=== PATIENT | male | born 1940 | race Caucasian/White ===

== ENCOUNTER 2020-07-10 03:20 | Inpatient (IN) | payer OTHER, SELFPAY ==
[~2020-07-10] VITALS: Ht 165.1 cm; Wt 103.0 kg
[2020-07-10 03:34] VITALS: BP 145/62
--- NOTE | 2020-07-10 03:35 | NUR ---
03:18---- PT WAS BIB [facility] [facility] TO HOSPITAL BED AND TRANSFERED FROM [facility] TO HOSPITAL BED WITHOUT INCIDENT.
--- NOTE | 2020-07-10 03:40 | NUR ---
79 Y/O MALE, BIBA W/ C/O FEVER. PT FROM [facility], PER FACILITY, NURSE REPORTS A FEVER OF 99.4, UPON ARRIVAL, ORAL TEMP 98.7. PT SP02 IN LOW 80's, STARTED ON NASAL CANNULA 3L. PT ANOx4, MAKES NEEDS KNOWN. SUPRAPUBIC CATHETER IN PLACE, HAZY YELLOW URINE NOTED. SKIN INTACT, SOME CELLULITIS NOTED AT BILATERAL LOWER EXTREMITIES. PT REPORTS HAVING CONSTANT CHRONIC BACK PAIN DUE TO 2 SCREW PLACEMENT. PT POSITIONED FOR COMFORT. SAFETY MEASURES IN PLACE. NKA MED HX: KIDNEY DX, PROSTATE CA, HTN
--- NOTE | 2020-07-10 04:02 | NUR ---
EKG PERFORMED AT BEDSIDE. EKG READS SINUS RHYTHM @ 81
--- NOTE | 2020-07-10 04:08 | NUR ---
X-Ray at bedside.
--- NOTE | 2020-07-10 04:43 | NUR ---
BLOOD CULTURES, BLOOD LABS, COVID KEELEY & NOVEL SWABS, FLU SWAB , RSV SWAB AND URINE SAMPLE WALKED TO LAB.
[2020-07-10] MEDS ORDERED: AZITHROMYCIN 500 MG in DEXTROSE 5% 250 ML IV ONE (04:50)
[2020-07-10 05:03] LABS: BASOPHILS % (AUTO) 0.6 % (0.0-2.0); EOSINOPHILS % (AUTO) 0.5 % (0.0-4.0); HEMATOCRIT 26.4 % (36-52); HEMOGLOBIN 8.8 g/dL (12.0-18.0); LYMPHOCYTES # (AUTO) 0.6 K/uL (2.0-11.5); LYMPHOCYTES % (AUTO) 8.1 % (20.5-51.1); MEAN CORPUSCULAR HEMOGLOBIN 31 pg (27-31); MEAN CORPUSCULAR HGB CONC 33 g/dL (33-37); MEAN CORPUSCULAR VOLUME 92.8 fL (80-94); MONOCYTES # (AUTO) 0.5 K/uL (0.8-1.0); MONOCYTES % (AUTO) 6.6 % (1.7-9.3); NEUTROPHILS # (AUTO) 5.8 K/uL (1.8-7.7); NEUTROPHILS % (AUTO) 84.2 % (42.2-75.2); PLATELET COUNT (AUTO) 150 K/uL (140-450); RED BLOOD CELL COUNT(AUTO) 2.85 MIL/uL (4.20-6.10); RED CELL DISTRIBUTION WIDTH 14.7 % (11.6-13.7); WHITE BLOOD COUNT (AUTO) 6.8 K/uL (4.8-10.8)
[2020-07-10 05:06] LABS: APPEARANCE,URINE HAZY (CLEAR); BILIRUBIN,URINE NEGATIVE (NEGATIVE); BLOOD, URINE 3+ (NEGATIVE); COLOR,URINE YELLOW (YELLOW); LEUKOCYTE ESTERASE ,URINE 3+ (NEGATIVE); NITRITE, URINE POSITIVE (NEGATIVE); PH,URINE 7.5 (5.0-9.0); UGLUCOSE NEGATIVE (NEGATIVE)
[2020-07-10] MEDS ORDERED: AZITHROMYCIN 500 MG INJ VIAL IV ONE (05:07)
[2020-07-10 05:12] LABS: RSV NEGATIVE (NEGATIVE)
[2020-07-10] MEDS ORDERED: KETOROLAC 30 MG/ML VIAL ONE (05:25)
--- NOTE | 2020-07-10 05:25 | NUR ---
PT SCREAMING AND COMPLAINING OF SEVERE BACK PAIN. ADMINISTERED PAIN MEDS ORDERED AND ASSISTED WITH POSITIONING. SAFETY MEASURES IN PLACE.
[2020-07-10 05:26] LABS: RBC,URINE 11-20 (MOD) /HPF (0-5); WBC,URINE 60-80 /HPF (0-5)
[2020-07-10 05:32] LABS: PROTHROMBIN TIME 10.7 secs (10.8-13.4)
[2020-07-10] MEDS ORDERED: KETOROLAC 30 MG/ML VIAL IVP ONE (06:00)
[2020-07-10 06:09] LABS: ANION GAP 21.6 (8-16); CARBON DIOXIDE 16.7 mmol/L (21-32); CHLORIDE 93 mmol/L (98-107); GLUCOSE 107 mg/dL (74-106); POTASSIUM 5.3 mmol/L (3.5-5.1); SODIUM SERUM 126 mmol/L (136-145)
[2020-07-10 06:10] LABS: ASPARTATE AMINOTRANSFERASE 28 U/L (15-37); TOTAL BILIRUBIN 0.4 mg/dL (0.0-1.0)
[2020-07-10] MEDS ORDERED: LEVOFLOXACIN 500 MG/D5W PREMIX 100 ML IV ONE (06:10)
[2020-07-10] MEDS ORDERED: DEXAMETHASONE 10 MG/ML VIAL IVP ONE (06:10)
[2020-07-10 06:13] LABS: CREATININE 5.5 mg/dL (0.6-1.3); LACTATE DEHYDROGENASE 348 U/L (85-227); UREA NITROGEN, BLOOD 91 mg/dL (7-18)
[2020-07-10 06:16] LABS: C-REACTIVE PROTEIN QUANT 21.5 mg/dL (0.0-0.9)
[2020-07-10] MEDS ORDERED: SODIUM ZIRCONIUM CYCLOSILICATE 10 GM POWD.PACK PO ONE (06:20)
--- NOTE | 2020-07-10 07:05 | NUR ---
SPOKE [facility] PATIENTS SON-SILVA, UPDATED ON PATIENTS CONDITION. ALL QUESTIONS ANSWERED. WILL ENDORSE TO [facility] NURSE TO UPDATE FAMILY WHEN A BED IS RECEIVED. CHRIS WEI [phone]
--- NOTE | 2020-07-10 07:20 | NUR ---
ENDORSED TO DAYSHIFT NURSE ELIESER, PT IN STABLE CONDITION, 3L NC, SP02 97%. PT AWARE SON IS UPDATED. SAFETY MEASURES IN PLACE, TRANSFER OF CARE AT THIS TIME.
--- NOTE | 2020-07-10 07:25 | NUR ---
RECEIVED PATIENT AWAKE, ALERT, IN NAD WITH NO C/O PAIN. RESPIRATIONS ARE REGULAR AND UNLABORED WITH FIO2 AT 3 LITERS N/C. PATIENT IS ANXIOUS SAYING REPEATEDLY, "DON'T LEAVE ME ALONE" . REASSURANCE GIVEN. CM = SR WITHOUT ECTOPY. IVAB CONTINUES
--- NOTE | 2020-07-10 07:40 | NUR ---
CALL TO GIVE REPORT, PHONE BUSY
--- NOTE | 2020-07-10 07:42 | NUR ---
REPORT CALLED TO VESNA RN
--- NOTE | 2020-07-10 07:47 | NUR ---
CALL TO PTS SON SILVA, MESSAGE LEFT
--- NOTE | 2020-07-10 07:48 | NUR ---
TO 118A VIA GURNEY, ATTACHED TO TRANSPORT MONITOR. CARE ENDORSED TO CHARLES MALAGON
--- NOTE | 2020-07-10 08:05 | NUR ---
RECEIVED THIS 79 YEAR OLD MALE PER [facility] FROM ER, AWAKE, ALERT, ORIENTEDX2, BREATHING SPONTANEOUSLY WITH O2 AT 2L/MIN VIA NC, NOT IN DISTRESS NOTED. WITH IV CANNULA G22 AT LEFT FOREARM NOTED, ON SALINE LOCK. WITH SUPRAPUBIC CATHETER F16 ATTACHED TO URINE BAG DRAINING TO A DARK YELLOW URINE NOTED. DX COVID POSITIVE, PNEUMONIA AND HYPOXIA UNDER THE CARE OF DR. YEPEZ. SAFETY MEASURES IN PLACE AND CONTINUE MONITOR.
[2020-07-10] MEDS ORDERED: ALBUTEROL HFA MDI 90 MCG/ACTUATION 8 GM INH PRN (09:25)
[2020-07-10] MEDS ORDERED: POTASSIUM CHLORIDE 10 MEQ TABER PO PRN (09:25)
[2020-07-10] MEDS ORDERED: ONDANSETRON 4 MG/2 ML VIAL IM/IVP PRN (09:25)
[2020-07-10] MEDS ORDERED: ACETAMINOPHEN 325 MG TAB PO PRN (09:25)
[2020-07-10] MEDS ORDERED: DOCUSATE SODIUM 100 MG GELCAP PO PRN (09:25)
--- NOTE | 2020-07-10 09:30 | NUR ---
MRSA NARES SWAB DONE
[2020-07-10 10:34] LABS: CHOL/HDL RATIO 6.2 (1-4.5); FREE T4 (FREE THYROXINE) 0.99 ng/dL (0.76-1.46); MAGNESIUM 1.9 mg/dL (1.8-2.4); PHOSPHORUS 7.4 mg/dL (2.5-4.9); THYROID STIMULATING HORMONE 1.86 uIU/mL (0.34-3.74)
--- NOTE | 2020-07-10 11:05 | NUR ---
MORNING CARE DONE BY EXTRACT MIXER, ASSISTED WELL. WITH DIAPER RASH NOTED ON BILATERAL GROIN, DRY NOTED. RE-POSITIONED TO LEFT SIDE LYING. KEPT COMFORTABLE TO BED. DUE MEDICATION GIVEN.
--- NOTE | 2020-07-10 11:23 | NUR ---
DC PLANNIN YRS OLD MALE PATIENT WAS ADMITTED FROM [facility] WITH A DX OF COVID PNEUMONIA, HYPOXIA, ACIDOSIS AND COAGULOPATHY. PATIENT HAS A HISTORY OF PROSTATE CANCER. CXR SHOWED BILATERAL PERIHILAR AND BASILAR OPACITIES SUGGESTING INFILTRATES AND CARDIOMEGALY. RAPID COVID TEST POSITIVE. PCR PENDING. INFLUENZA A&B NEGATIVE. URINE AND BLOOD CULTURE PENDING. ADMINISTERED COVID PROTOCOL , IVF , IV ABX AZITHROMYCIN AND ROCEPHIN , CONTINUE HOME MEDS, BREATHING TREATMENT. CONSULTED WITH PULMO AND ID. DC PLAN TO GO TO SNF PER PT'S PREFERENCE FOR QUARANTINE. CM TO FOLLOW Addendum: 07/11/20 at 1424 by Harika Moffett CM DC SHOWROOM SALES CONSULTANT: SPOKE TO PATIENT REGARDING DC TO SNF. HE HAS STATED THAT HE WAS PREVIOUSLY AT [facility] IN [place]. I REACHED OUT TO THEM THEY ARE NOT ABLE TO ACCEPT COVID POSITIVE PATIENTS. NOTIFIED PATIENT HE DOES NOT HAVE ANY OTHER PREFERENCES. Addendum: 07/11/20 at 1425 by Harika Moffett CM JAXSON RAUSCH: FAXED PATIENTS CLINICALS TO [facility], THEY ARE ABLE TO ACCEPT THIS PATIENT. PATIENT IS AGREEABLE. Addendum: 07/15/20 at 0915 by Harika Moffett CM JAXSON MARTINEZNER: PATIENT CAN GO TO ROOM 102-A UNDER DR. HERNANDEZ. Addendum: 07/15/20 at 1300 by Harika Moffett CM JAXSON RAUSCH: PEÑA AT [facility] SET UP TRANSPORTATION WITH [facility] FOR 3:30M PM. NOTIFIED CHARLES NIEVES. Addendum: 07/15/20 at 1305 by Harika Moffett CM JAXSON RAUSCH: [facility] ROOM 102-A DR. HERNANDEZ. [phone]
--- NOTE | 2020-07-10 12:30 | NUR ---
VITAL SIGNS TAKEN AND RECORDED, STABLE. FULLY AWAKE AND ALERT
--- NOTE | 2020-07-10 13:56 | NUR ---
SOCIAL WORK NOTE: Patient's Orientation Unable To Assess Information Provided By SILVA WEI - SON Comments SW WAS UNABLE TO MEET PATIENT AT BEDSIDE TO COMPLETE ASSESSMENT. SW CONTACTED PATIENT'S SON, SILVA WEI TO COMPLETE ASSESSMENT. SW REQUESTED POA DOCUMENT TO BE FAXED TO CASE MANAGEMENT [phone]. Commercial Sales Consultant, Realtionship and Phone Number SILVA WEI SON/POA [phone] Healthcare Power of Demolition Expert Yes Does Patient Have a POLST No Identifying Problems No Social Work Triggers Is A Social Work Consult Needed No Mandate Report Filed No Explanation Of Identifying Problems PATIENT IS AN 79-YEAR-OLD MALE ADMITTED FOR COVID, PNEUMONIA, AND HYPOXIA. PATIENT HAS PMHX OF PROSTATE CANCER. PATIENT WAS ADMITTED FROM [facility]. Admitted From Assisted Living/Resident Pre-Admission Level Of Functioning Status Total Care Level Of Functioning Comment PATIENT'S SON STATED THAT PATIENT REQUIRES TOTAL ASSISTANCE WITH ADLS. Prior Resources/Services Used In Last 12 Months Assisted Living Prior DME Wheelchair Dialysis Comments N/A Living Situation Asst'd Living/Board &Care Patient Had Caregiver No Home Support No Caregiver Issues Financial Issues No Known Financial Issue Referral To The Financial Counselor Needed No Factors/Needs Assist Living/B & C Plcmt Explanation And Or Other Factors Affecting/Possible DC Needs SW EXPLAINED WITH PATIENT'S SON THAT [facility] DOES NOT ACCEPT COVID POSITIVE PATIENTS. PATIENT'S SON WAS AGREEABLE TO SNF. Pt/Rep Participated In Discharge Plan Yes Patient/Family Agress With Discharge Plan Yes Discharge Plan Comments TENTATIVE DISCHARGE PLAN IS FOR PATIENT TO BE DISCHARGED TO SNF. DC Plan Status Initiated
[2020-07-10] MEDS ORDERED: NACL 0.9% 1,000 ML IV SCH (14:15)
--- NOTE | 2020-07-10 15:10 | NUR ---
SEEN AND EXAMINED BY DR. YEPEZ, NO NEW ORDER MADE
[2020-07-10] MEDS ORDERED: MELATONIN 3 MG TAB PO PRN (16:05)
[2020-07-10] MEDS: HYDROcodone/APAP 7.5/325 MG 1 TAB PO PRN (17:31)
[2020-07-10] MEDS: FUROSEMIDE 40 MG TAB PO SCH (17:31)
--- NOTE | 2020-07-10 17:36 | NUR ---
COMPLAINED OF MODERATE BACK PAIN, 7/10, FACIAL GRIMACED NOTED WHEN MOVEMENT. NORCO 1 TAB ORDERED PRN AND DUE MEDICATION GIVEN.
--- NOTE | 2020-07-10 18:10 | NUR ---
CONSENT FOR TRANSFUSION OF CONVALESCENT PLASMA SIGNED BY THE PATIENT AND DR. BEGUM. PATIENT'S SON SILVA CONTACTED AND MADE AWARE THAT THE PATIENT WILL RECEIVE CONVALESCENT ONCE AVAILABLE.
--- NOTE | 2020-07-10 19:31 | NUR ---
ENDORSED TO CRIME ANALYST IN STABLE CONDITION FOR CONTINUITY OF CARE
--- NOTE | 2020-07-10 19:32 | NUR ---
RECEIVED PT IN STABLE CONDITION FROM AM NURSE. TELE PT. ON DROPLET PRECAUTION DUE TO COVID +. PCR STILL PENDING. ON O23L/NC. O2 SAT 96%. NO SOB NOTED. HAS IVF INFUSING WELL ON THE LT FA G#22. CLEAR AND PATENT. BED ON LOWEST POSITION. SIDE RAISL UP X2. FREQ ROUNDS NEEDED. CALL LIGHT PLACED WITHIN EASY REACH. WILL CONTINUE TO MONITOR.
[2020-07-10] MEDS: OXYBUTYNIN 5 MG TAB PO SCH (20:16)
[2020-07-10] MEDS: carvediloL 6.25 MG TAB PO SCH (20:31)
--- NOTE | 2020-07-10 21:00 | NUR ---
COREG NOT GIVEN. BP LOW 95/60. WILL CONTINUE TO MONITOR.
--- NOTE | 2020-07-11 00:30 | NUR ---
CHECKED ON PT. ASLEEP. NO S/S OF ANY DISTRESS NOTED. O2 SAT 96%. WILL CONTINUE TO MONITOR.
--- NOTE | 2020-07-11 04:00 | NUR ---
MADE ROUNDS. PT AWAKE. FEELING COLD. HEATER TURN ON. VITAL SIGNS TAKEN. O2 SAT 93% 0N 023L NC. NO /CO ANY DISCOMFORT .
--- NOTE | 2020-07-11 05:30 | NUR ---
IV BEEPING. CAME TO CHECK, FLUSHED IV ACCESS WITH NS. IT STILL PATENT, IVF INFUSING WELL.
--- NOTE | 2020-07-11 07:30 | NUR ---
ENDORSED PT IN STABLE CONDITION TO AM NURSE.
--- NOTE | 2020-07-11 07:35 | NUR ---
RECEIVED PT FROM [facility], LYING ON THE BED WITH SHERIFF ON BEDSIDE, IV LINE NOTED ON THE LFA G. 22 WITH IVF NS INFUSING AT 50ML/HR, SAFETY AND FALL PRECAUTION IN PLACE, SUPRAPUBIC CATHETER INTACT, WITH URINE DRAINED IN BAG AT 490ML/HR, PT IS ON O2 3L NC, NO SIGN OF DISTRESS NOTED AND WILL CONTINUE 4 TO MONITOR PT.
[2020-07-11] MEDS ORDERED: SEVELAMER CARBONATE 800 MG TAB PO SCH (08:00)
[2020-07-11 08:01] LABS: BASOPHILS % (AUTO) 0.3 % (0.0-2.0); HEMATOCRIT 27.7 % (36-52); HEMOGLOBIN 9.1 g/dL (12.0-18.0); LYMPHOCYTES # (AUTO) 0.5 K/uL (2.0-11.5); LYMPHOCYTES % (AUTO) 6.5 % (20.5-51.1); MEAN CORPUSCULAR HEMOGLOBIN 31 pg (27-31); MEAN CORPUSCULAR HGB CONC 33 g/dL (33-37); MEAN CORPUSCULAR VOLUME 93.3 fL (80-94); MONOCYTES # (AUTO) 0.6 K/uL (0.8-1.0); MONOCYTES % (AUTO) 6.7 % (1.7-9.3); NEUTROPHILS # (AUTO) 7.2 K/uL (1.8-7.7); NEUTROPHILS % (AUTO) 86.5 % (42.2-75.2); PLATELET COUNT (AUTO) 181 K/uL (140-450); RED BLOOD CELL COUNT(AUTO) 2.97 MIL/uL (4.20-6.10); RED CELL DISTRIBUTION WIDTH 14.6 % (11.6-13.7); WHITE BLOOD COUNT (AUTO) 8.3 K/uL (4.8-10.8)
[2020-07-11 08:08] LABS: T4 (THYROXINE) 5.1 ug/dL (4.5-12.0)
--- NOTE | 2020-07-11 08:36 | NUR ---
PATIENT HAS BEEN SCREENED AND CATEGORIZED MODERATE NUTRITION RISK. PATIENT WILL BE SEEN WITHIN 3-5 DAYS OF ADMISSION. 07/12/20 07/14/[address]
[2020-07-11 08:37] LABS: ALBUMIN 2.8 g/dL (3.4-5.0); ANION GAP 26.5 (8-16); ASPARTATE AMINOTRANSFERASE 24 U/L (15-37); CARBON DIOXIDE 16.4 mmol/L (21-32); CHLORIDE 91 mmol/L (98-107); GLUCOSE 121 mg/dL (74-106); POTASSIUM 5.9 mmol/L (3.5-5.1); SODIUM SERUM 128 mmol/L (136-145); TOTAL BILIRUBIN 0.3 mg/dL (0.0-1.0)
[2020-07-11 08:39] LABS: MAGNESIUM 2.1 mg/dL (1.8-2.4)
[2020-07-11] MEDS: ASCORBIC ACID 500 MG TAB PO SCH ×2 (09:00→09:50)
[2020-07-11] MEDS ORDERED: BENAZEPRIL 10 MG TAB PO SCH (09:00)
[2020-07-11] MEDS ORDERED: amLODIPine 5 MG TAB PO SCH (09:00)
[2020-07-11] MEDS: ZINC SULF 220 MG CAP PO SCH (09:50)
[2020-07-11] MEDS: OXYBUTYNIN 5 MG TAB PO SCH ×2 (09:51→22:08)
[2020-07-11] MEDS: DULoxetine 30 MG CAPDR PO SCH (09:51)
[2020-07-11] MEDS: FUROSEMIDE 40 MG TAB PO SCH (09:52)
[2020-07-11] MEDS: SENNA 8.6 MG TAB PO SCH (09:52)
[2020-07-11] MEDS: MORPHINE TAB ER 15 MG TABER PO SCH (09:52)
[2020-07-11] MEDS: carvediloL 6.25 MG TAB PO SCH ×2 (09:53→22:07)
[2020-07-11] MEDS: AZITHROMYCIN 250 MG TAB PO SCH (09:57)
--- NOTE | 2020-07-11 09:57 | NUR ---
PT WAS GIVEN THE SCHEDULED AM MEDICATIONS NOW, TOLERATED, NO DIFFICULTY SWALLOWING NOTED, WILL MONITOR PT.
[2020-07-11 10:33] LABS: CREATININE 6.2 mg/dL (0.6-1.3); UREA NITROGEN, BLOOD 109 mg/dL (7-18)
[2020-07-11 10:34] LABS: PHOSPHORUS 10.7 mg/dL (2.5-4.9)
[2020-07-11] MEDS ORDERED: SODIUM ZIRCONIUM CYCLOSILICATE 10 GM POWD.PACK PO SCH (11:00)
--- NOTE | 2020-07-11 11:57 | NUR ---
CALLED [facility] AND SPOKE TO HEAVENLY AND SAID THAT THE FACILITY IS NON-MEDICAL AND THEY DONT CARRY LAB RESULT OF THE PT, CALLED PT PCP AT [phone] AND LEFT A MESSAGE TO OBTAIN INFORMATION, AWAITING CALLBACK.
[2020-07-11] MEDS: SEVELAMER CARBONATE 800 MG TAB PO SCH ×2 (12:18→17:09)
[2020-07-11] MEDS: SODIUM BICARBONATE 650 MG TAB PO SCH ×2 (12:20→22:08)
--- NOTE | 2020-07-11 12:20 | NUR ---
PT WAS GIVEN THE SCHEDULED MEDICATIONS NOW VIA ORAL, TOLERATED AND WILL MONITOR PT.
[2020-07-11] MEDS: DEXT 5% /NACL 0.9% 1,000 ML IV SCH (12:22)
--- NOTE | 2020-07-11 12:22 | NUR ---
PT WAS STARTED ON IVF D5NS AT 75ML/HR NOW.
[2020-07-11] MEDS: HYDROcodone/APAP 7.5/325 MG 1 TAB PO PRN (12:39)
[2020-07-11] MEDS: MORPHINE SULFATE 2 MG/ML SYR IVP PRN (15:32)
[2020-07-11 15:43] LABS: URINE TOTAL PROTEIN 47.7 mg/dL (0-12)
--- NOTE | 2020-07-11 17:10 | NUR ---
EVENING MEDICATIONS ADMINISTERED, PT IS COMPLAINING OF UPPER ABDOMINAL DISCOMFORT, ULTRA SOUND TECH IS CURRENTLY IN THE ROOM WITH THE PATIENT, WILL CONTINUE TO MONITOR.
--- NOTE | 2020-07-11 19:35 | NUR ---
ENDORSED PT TO BEAD INSPECTOR NURSE FOR CONTINUITY OF CARE.
--- NOTE | 2020-07-11 19:36 | NUR ---
RECEIVED ENDORSEMENT FROM AM SHIFT RN. PT IS AWAKE, ALERT, NO DISTRESS, ON O2 VIA NC, NO SOB, IVF INFUSING, FALL PRECAUTION IN PLACE, DROPLET ISO OBSERVED, PLAN OF CARE DISCUSSED, CALL LIGHT WITHIN REACH.
--- NOTE | 2020-07-11 20:18 | NUR ---
PT CHECKED. NO TX NEEDED. ON RA. WILL CONT TO MONITOR
[2020-07-11 22:04] LABS: LACTATE DEHYDROGENASE 361 U/L (85-227)
--- NOTE | 2020-07-11 22:07 | NUR ---
PT IS AWAKE, NO DISTRESS, DUE MEDS GIVEN ORDERED O2 SAT 91%. CALL LIGHT WITHIN REACH.
[2020-07-12] MEDS: HYDROcodone/APAP 7.5/325 MG 1 TAB PO PRN ×2 (01:12→05:13)
--- NOTE | 2020-07-12 01:12 | NUR ---
C/O ABDOMINAL PAIN 02/06, NORCO PO GIVEN ORDERED, WILL MONITOR.
[2020-07-12] MEDS: DEXT 5% /NACL 0.9% 1,000 ML IV SCH ×2 (01:16→13:20)
--- NOTE | 2020-07-12 02:12 | NUR ---
NO C/O PAIN, PT IS RESTING.
[2020-07-12] MEDS: MORPHINE SULFATE 2 MG/ML SYR IVP PRN (02:50)
--- NOTE | 2020-07-12 06:42 | NUR ---
DR. REDD ORDERED CONSULT DR. VALERO. NOTED AND CARRIED OUT.
[2020-07-12 07:22] LABS: ALBUMIN 2.6 g/dL (3.4-5.0); ANION GAP 23.1 (8-16); ASPARTATE AMINOTRANSFERASE 40 U/L (15-37); CHLORIDE 89 mmol/L (98-107); GLUCOSE 135 mg/dL (74-106); LACTATE DEHYDROGENASE 408 U/L (85-227); POTASSIUM 5.1 mmol/L (3.5-5.1); SODIUM SERUM 124 mmol/L (136-145); TOTAL BILIRUBIN 0.3 mg/dL (0.0-1.0)
--- NOTE | 2020-07-12 07:35 | NUR ---
PT IS STABLE, NO SOB. ENDORSED TO AM SHIFT RN FOR CONTINUITY OF CARE.
[2020-07-12 08:00] LABS: CREATININE 5.6 mg/dL (0.6-1.3); UREA NITROGEN, BLOOD 113 mg/dL (7-18)
--- NOTE | 2020-07-12 08:00 | NUR ---
Pt c/o epigastric pain. Pt not due for morphine or norco. Dr Sr notified and gave order for GI cocktail. Order noted and carried out.
[2020-07-12] MEDS ORDERED: LIDOCAINE VISCOUS 2% 20 ML UDC PO PRN (08:05)
[2020-07-12] MEDS ORDERED: ALUMINUM HYD/MAG/SIMETHICONE 30 ML UDC PO PRN (08:05)
[2020-07-12] MEDS ORDERED: DICYCLOMINE HCL LIQUID 10 MG/5 ML UDC PO PRN (08:05)
[2020-07-12] MEDS: OXYBUTYNIN 5 MG TAB PO SCH ×2 (08:56→20:45)
[2020-07-12] MEDS: SEVELAMER CARBONATE 800 MG TAB PO SCH ×3 (08:56→17:40)
[2020-07-12] MEDS: SODIUM BICARBONATE 650 MG TAB PO SCH ×2 (08:56→20:45)
[2020-07-12] MEDS: SENNA 8.6 MG TAB PO SCH (08:57)
[2020-07-12] MEDS: AZITHROMYCIN 250 MG TAB PO SCH (08:57)
[2020-07-12] MEDS: DULoxetine 30 MG CAPDR PO SCH (08:57)
[2020-07-12] MEDS: MORPHINE TAB ER 15 MG TABER PO SCH (08:57)
[2020-07-12] MEDS: carvediloL 6.25 MG TAB PO SCH ×2 (08:57→20:45)
[2020-07-12] MEDS: ALPRAZolam 0.5 MG TAB PO PRN (08:57)
[2020-07-12] MEDS: ZINC SULF 220 MG CAP PO SCH (08:58)
[2020-07-12] MEDS: ASCORBIC ACID 500 MG TAB PO SCH ×2 (09:00)
--- NOTE | 2020-07-12 09:00 | NUR ---
Pt resting quietly in bed at this time, states abd discomfort is improved. Left FA 22G IV intact and asymptomatic with ongoing D5NS@ 75ml/hr.
--- NOTE | 2020-07-12 11:15 | NUR ---
Informed patient that physician has ordered to hold any food or drink expect for meds to rest bowels. Patient verbalized understanding and agree with careplan.
[2020-07-12] MEDS ORDERED: CALCIUM GLUCONATE 10% 2,000 MG in NACL 0.9% 100 ML IV SCH (12:00)
--- NOTE | 2020-07-12 12:15 | NUR ---
Pt asking for food. Reinforced teaching re: NPO order from physician for HIDA scan. Pt verbalized understanding.
--- NOTE | 2020-07-12 16:00 | NUR ---
WILBERT best arrived at bedside for HIDA scan. Pt resting in bed, respirations even & nonlabored O2 @ 3Lpm via n/c.
--- NOTE | 2020-07-12 18:00 | NUR ---
NM Hida scan completed at this time.
--- NOTE | 2020-07-12 19:20 | NUR ---
RECEIVED BEDSIDE REPORT FROM DAY SHIFT NURSE FOR CONTINUITY OF CARE. PT IS AWAKE AND ALERT, A&OX3. ON 3L O2 NC WITH BREATHING UNLABORED. PT IS REQUESTING WATER BUT WAS GIVEN EDUCATION WHY HE IS STILL NPO. PT VERBALIZED UNDERSTANDING. ON TELE MONITORING. SUPRAPUBIC CATHETER IN PLACE. SKIN IS WARM AND DRY, NO WOUNDS PRESENT. IV IS IN THE LEFT FOREARM 22 GAUGE RUNNING D5 NS AT 75 ML PER HOUR PER ORDER. PLAN OF CARE DISCUSSED. FALL PRECAUTIONS IN PLACE. BED IN THE LOWEST POSITION AND CALL LIGHT WITHIN REACH.
--- NOTE | 2020-07-12 21:00 | NUR ---
PT IS ASLEEP. CHEST RISE AND FALL IS SYMMETRICAL. O2 SAT IS 94% ON 3L O2 NC. NO DISTRESS NOTED. WILL CONTINUE TO MONITOR.
--- NOTE | 2020-07-12 21:30 | NUR ---
SPOKE TO TECH FROM BLOOD BANK AND WAS INFORMED THAT THE CONVALESCENT PLASMA IS NOW AVAILABLE AND NEEDS TO BE THAWED FOR AN HOUR. WILL CALL BLOOD BANK WHEN I AM READY TO ADMINISTER.
--- NOTE | 2020-07-12 23:30 | NUR ---
INFORMED PT THAT THE CONVALESCENT PLASMA IS READY AND HE ASKED FOR MORE INFORMATION AT THIS TIME EVEN THOUGH CONSENT AND INFORMATION WAS PREVIOUSLY GIVEN. PT WAS GIVEN CONVALESCENT PLASMA HANDOUT AND I READ THE PAMPHLET TO THE PT. THE PT DECIDED HE IS READY TO RECEIVE THE PLASMA. WILL ADMINISTER SHORTY WHEN IT IS READY.
[2020-07-13] VITALS: BP 126/70
--- NOTE | 2020-07-13 00:21 | NUR ---
CALLED THE BLOOD BANK TO INFORM THEM THAT I AM READY FOR TRANSFUSE THE CONVALESCENT PLASMA. THEY HAVE BEGUN THAWING THE PLASMA AND WILL CALL IN AN HOUR WHEN IT IS READY.
--- NOTE | 2020-07-13 02:30 | NUR ---
RECEIVED THE CONVALESCENT PLASMA FROM THE BLOOD BANK AND THE PT DID NOT HAVE THE WRISTBAND TO READ BACK THE NUMBER. LAB STATED THAT THEY WILL FOLLOW THROUGH WITH THEIR BOSS IN THE MORNING TO CORRECT THE SITUATION AND GET ANOTHER WRISTBAND. WILL FOLLOW UP AT 5 AM TO SEE WHAT THE BOSS SAYS ABOUT GETTING A NEW WRISTBAND.
[2020-07-13] MEDS: DEXT 5% /NACL 0.9% 1,000 ML IV SCH ×3 (02:45→21:50)
[2020-07-13] MEDS: MORPHINE SULFATE 2 MG/ML SYR IVP PRN (02:59)
--- NOTE | 2020-07-13 02:59 | NUR ---
PT STATES HE HAS PAIN IN HIS BACK AT SCALE OF 9/10. PAIN IS ACHING AND CHRONIC. PT WAS GIVEN MORPHINE ORDERED FOR SEVERE PAIN. BP WAS 125/73 PRIOR TO ADMINISTRATION.
--- NOTE | 2020-07-13 03:45 | NUR ---
PT IS REPOSITIONED PER PROTOCOL. PT HAS NOT HAD A BM SO FAR ON THIS SHIFT. BLANKETS WERE PROVIDED FOR COMFORT. O2 SAT IS 93% ON 3L O2 NC. IV IS PATENT AND INFUSING. WILL CONTINUE TO MONITOR.
[2020-07-13 04:00] VITALS: BP 124/67
[2020-07-13] MEDS ORDERED: LEVOFLOXACIN 750 MG/D5W PREMIX 150 ML IV SCH (05:00)
[2020-07-13] MEDS ORDERED: LEVOFLOXACIN 500 MG/D5W PREMIX 100 ML IV SCH (05:00)
--- NOTE | 2020-07-13 05:10 | NUR ---
PT IS SLEEPING. NO PAIN NOTED. BEDSIDE TABLE AND PHONE IS WITHIN REACH. CALL LIGHT IS NEXT TO PT IN BED. IV IS PATENT AND INFUSING ORDERED. ON 3L O2 NC WITH O2 SAT AT 90%. NO DISTRESS AT THIS TIME.
--- NOTE | 2020-07-13 06:10 | NUR ---
CONVALESCENT PLASMA WAS PICKED UP FROM BLOOD BANK. WILL ADMINISTER SHORTLY. VITALS BEFORE TRANSFUSION WERE BP 155/78, HR 84, O2 SAT 91%, TEMP 97.8 F. WILL CONTINUE TO MONITOR.
--- NOTE | 2020-07-13 06:30 | NUR ---
CONVALESCENT PLASMA HAS BEEN STARTED AND HAS NOW STARTED TO HIT THE VEIN. WILL MONITOR VS.
--- NOTE | 2020-07-13 06:59 | NUR ---
PT IS TOLERATING CONVALESCENT PLASMA WELL. NO DISTRESS NOTED. PT IS STABLE.
[2020-07-13 07:28] LABS: ALBUMIN 2.5 g/dL (3.4-5.0); ANION GAP 19.4 (8-16); ASPARTATE AMINOTRANSFERASE 32 U/L (15-37); CARBON DIOXIDE 18.7 mmol/L (21-32); CHLORIDE 94 mmol/L (98-107); GLUCOSE 127 mg/dL (74-106); LACTATE DEHYDROGENASE 451 U/L (85-227); POTASSIUM 5.1 mmol/L (3.5-5.1); SODIUM SERUM 127 mmol/L (136-145); TOTAL BILIRUBIN 0.3 mg/dL (0.0-1.0)
--- NOTE | 2020-07-13 07:35 | NUR ---
PLASMA HAS JUST FINISHED. TUBING IS NOW BEING FLUSHED WITH NS. PT TOLERATED PLASMA WELL. NO SIGNS OF DISTRESS. VS ARE STABLE. WILL CONTINUE TO MONITOR FOR 15 MIN.
--- NOTE | 2020-07-13 07:45 | NUR ---
RECEIVED REPORT FROM SENIOR IT RECRUITER RN FOR CONTINUITY OF CARE. PATIENT JUST FINISHED CONVALESCENT PLASMA, PATIENT TOLERATED WELL. PATIENT IS ON 3L NC. SKIN WARM AND DRY. IV SITE LEFT FOREARM 22G. ABDOMEN SOFT, NON TENDER. SAFETY MEASURES IN PLACE, CALL LIGHT WITHIN REACH. WILL CONTINUE TO MONITOR.
--- NOTE | 2020-07-13 07:45 | NUR ---
MONITORED PT AFTER PLASMA INFUSION. HE IS STABLE. NO RESPIRATORY DISTRESS, FEVER, BACK ACHE, OR PAIN. NO SIGNS OF AN ADVERSE REACTION. FIFTEEN MIN AFTER TRANSFUSION; BP 151/95, HR 88, RR 18, TEMP 97.8 F, NO PAIN. ENDORSED PT TO DAY SHIFT NURSE FOR CONTINUITY OF CARE. PT IS STABLE AT THIS TIME.
[2020-07-13 07:53] LABS: CREATININE 5.1 mg/dL (0.6-1.3); UREA NITROGEN, BLOOD 117 mg/dL (7-18)
[2020-07-13 08:00] VITALS: BP 159/88
[2020-07-13] MEDS: MORPHINE TAB ER 15 MG TABER PO SCH (08:35)
[2020-07-13] MEDS: SENNA 8.6 MG TAB PO SCH (08:35)
[2020-07-13] MEDS: SODIUM BICARBONATE 650 MG TAB PO SCH ×2 (08:35→21:38)
[2020-07-13] MEDS: OXYBUTYNIN 5 MG TAB PO SCH ×2 (08:35→21:39)
[2020-07-13] MEDS: SEVELAMER CARBONATE 800 MG TAB PO SCH ×3 (08:35→16:41)
[2020-07-13] MEDS: DULoxetine 30 MG CAPDR PO SCH (08:36)
[2020-07-13] MEDS: ASCORBIC ACID 500 MG TAB PO SCH (08:36)
[2020-07-13] MEDS: carvediloL 6.25 MG TAB PO SCH ×2 (08:36→21:38)
[2020-07-13] MEDS: ZINC SULF 220 MG CAP PO SCH (08:36)
--- NOTE | 2020-07-13 08:36 | NUR ---
SCHEDULED MORNING MEDICATION GIVEN, EDUCATION PROVIDED. PATIENT IS ORIENTED NAME AND PERSON. CONFUSED WITH TIME AND LOCATION AND SITUATION. REORIENTED THE PATIENT. PATIENT ASKS FOR BREAKFAST. INFORMED PATIENT THAT NPO STATUS. O2 SAT 92% WITH 3L NC. CALL LIGHT WITHIN REACH. WILL CONTINUE TO MONITOR.
[2020-07-13 09:46] LABS: BASOPHILS % (AUTO) 0.2 % (0.0-2.0); HEMATOCRIT 25.6 % (36-52); HEMOGLOBIN 8.2 g/dL (12.0-18.0); LYMPHOCYTES # (AUTO) 0.4 K/uL (2.0-11.5); LYMPHOCYTES % (AUTO) 2.7 % (20.5-51.1); MEAN CORPUSCULAR HEMOGLOBIN 30 pg (27-31); MEAN CORPUSCULAR HGB CONC 32 g/dL (33-37); MONOCYTES # (AUTO) 0.5 K/uL (0.8-1.0); MONOCYTES % (AUTO) 3.8 % (1.7-9.3); NEUTROPHILS # (AUTO) 12.4 K/uL (1.8-7.7); NEUTROPHILS % (AUTO) 93.3 % (42.2-75.2); PLATELET COUNT (AUTO) 216 K/uL (140-450); RED BLOOD CELL COUNT(AUTO) 2.75 MIL/uL (4.20-6.10); RED CELL DISTRIBUTION WIDTH 14.6 % (11.6-13.7); WHITE BLOOD COUNT (AUTO) 13.3 K/uL (4.8-10.8)
[2020-07-13 12:00] VITALS: BP 154/82
[2020-07-13] MEDS: ALPRAZolam 0.5 MG TAB PO PRN (12:19)
--- NOTE | 2020-07-13 12:19 | NUR ---
PATIENT IS VERY ANXIOUS. O2 SAT 87-88% WITH 3L NC. XANAX GIVEN, ENCOURAGE PATIENT TO TAKE DEEP BREATH. PATIENT'S O2 SAT GOES BACK TO 90-91%. INSTRUCTED PT REGARDING THE RELAXATION TECHNIQUE, PATIENT VERBALIZED UNDERSTAND. WILL CONTINUE TO MONITOR.
--- NOTE | 2020-07-13 12:48 | NUR ---
CHECKED PATIENT. CALM AND RESTING IN BED. DENIES PAIN OR DISCOMFORT AT THIS TIME. O2 SAT 94%. SAFETY MEASURES IN PLACE, WILL CONTINUE TO MONITOR.
--- NOTE | 2020-07-13 14:24 | NUR ---
07/13/2020 RD INITIAL ASSESSMENT COMPLETED PLEASE REFER TO NUTRITION ASSESSMENT UNDER CARE ACTIVITY FOR ESTIMATED NUTRITIONAL NEEDS. RD RECOMMENDATIONS: 1. CONTINUE NPO MEDICALLY APPROPRIATE. 2. CONSIDER CONSULTING MOBILE PAINT SPECIALIST IF PT HAS CHEWING/SWALLOWING DIFFICULTIES. 3. IF PT IS ABLE TO SAFELY CONSUME ORAL INTAKE, CONSIDER RENAL DIET. 4. RD WILL F/U 2-3 DAYS; HIGH RISK. TYRELL CORDOBA, RD
--- NOTE | 2020-07-13 14:24 | NUR ---
PATIENT WAS PICKED UP BY THE OR NURSE TO HAVE PROCEDURE OF US GUIDED PLACEMENT OF CHOLECYSTOMY TUBE FOR ACUTE CHOLECYSTITIS. PATIENT IN STABLE CONDITION.
[2020-07-13] MEDS ORDERED: LIDOCAINE 1% 500 MG/50 ML VIAL ONE (14:29)
[2020-07-13 16:00] VITALS: BP 132/72
--- NOTE | 2020-07-13 16:00 | NUR ---
PATIENT CAME BACK TO HIS ROOM 118 FROM US GUIDED PLACEMENT OF CHOLECYSTOMY TUBE. VITAL SIGNS CHECKED. TEMP 97.1, HR 81, BP 132/72. RR 20. O2 SAT 94% WITH 3L NC. WILL CONTINUE TO CLOSELY TO MONITOR.
[2020-07-13] MEDS: HYDROcodone/APAP 7.5/325 MG 1 TAB PO PRN ×2 (16:41→21:38)
--- NOTE | 2020-07-13 16:41 | NUR ---
NORCO GIVEN FOR SURGICAL SITE RIGHT ABD PAIN 6/10. EDUCATION PROVIDED. SAFETY MEASURES IN PLACE, WILL CONTINUE TO MONITOR.
--- NOTE | 2020-07-13 18:19 | NUR ---
PATIENT CAME BACK S/P CT ABD. PATIENT NOT IN ACUTE DISTRESS. RECONNECTED IV. OFFERED WATER. PATIENT IS ABLE TO TAKE SOFT DIET
--- NOTE | 2020-07-13 18:52 | NUR ---
75ML OF REDNESS COLOR DRAINAGE COLLECTED FROM CHOLECYSTOSTOMY BAG. SURGICAL SITE DRESSING INTACT. DRAIN FREELY.
--- NOTE | 2020-07-13 19:25 | NUR ---
ENDORSED PATIENT TO BUSINESS COMPUTERS TEACHER RN FOR CONTINUITY OF CARE. PATIENT IN STABLE CONDITION. O2 SAT 95% WITH 3L NC.
--- NOTE | 2020-07-13 20:00 | NUR ---
RECEIVED PATIENT AWAKE IN BED. PATIENT ON 3L O2 VIA NC. O2 SAT 92%. NO SOB OR S/S OF DISTRESS NOTED AT THIS TIME. CHOLECYSTOSTOMY TUBE NOTED ON THE RIGHT LATERAL ABD. DRESSING CDI, BROWN LIQUID OUTPUT NOTED. SUPRAPUBIC CATH IN PLACE, DRAINING CLEAR YELLOW URINE. PT ON TELE MONITORING. BED LOWERED WITH CALL LIGHT WITHIN REACH. WILL CONTINUE TO MONITOR
[2020-07-13 21:22] VITALS: BP 138/78
[2020-07-14] VITALS: BP 115/68
--- NOTE | 2020-07-14 00:20 | NUR ---
PT RESTING COMFORTABLY IN BED. NO S/S OF DISTRESS NOTED AT THIS TIME
[2020-07-14] MEDS: HYDROcodone/APAP 7.5/325 MG 1 TAB PO PRN ×2 (04:06→12:30)
--- NOTE | 2020-07-14 04:06 | NUR ---
PATIENT TURNED AND REPOSITIONED FOR COMFORT. PT C/O BACK PAIN. PRN MEDICATION ADMINISTERED
[2020-07-14 04:08] VITALS: BP 157/75
--- NOTE | 2020-07-14 06:08 | NUR ---
EMPTIED 85ML OF SANGUINOUS DRAINAGE FROM THE CHOLECYSTOSTOMY TUBE BAG.
[2020-07-14 07:27] LABS: ANION GAP 19.9 (8-16); CARBON DIOXIDE 18.3 mmol/L (21-32); CHLORIDE 100 mmol/L (98-107); GLUCOSE 124 mg/dL (74-106); POTASSIUM 5.2 mmol/L (3.5-5.1); SODIUM SERUM 133 mmol/L (136-145)
[2020-07-14 07:30] LABS: BASOPHILS % (AUTO) 0.3 % (0.0-2.0); HEMATOCRIT 23.3 % (36-52); HEMOGLOBIN 7.7 g/dL (12.0-18.0); LYMPHOCYTES # (AUTO) 0.3 K/uL (2.0-11.5); LYMPHOCYTES % (AUTO) 2.7 % (20.5-51.1); MEAN CORPUSCULAR HEMOGLOBIN 31 pg (27-31); MEAN CORPUSCULAR HGB CONC 33 g/dL (33-37); MEAN CORPUSCULAR VOLUME 93.7 fL (80-94); MONOCYTES # (AUTO) 0.7 K/uL (0.8-1.0); MONOCYTES % (AUTO) 5.5 % (1.7-9.3); NEUTROPHILS % (AUTO) 91.5 % (42.2-75.2); PLATELET COUNT (AUTO) 200 K/uL (140-450); RED BLOOD CELL COUNT(AUTO) 2.48 MIL/uL (4.20-6.10); RED CELL DISTRIBUTION WIDTH 14.7 % (11.6-13.7)
--- NOTE | 2020-07-14 07:36 | NUR ---
PT REPORT GIVEN TO AM NURSE. PT ENDORSED IN STABLE CONDITION
--- NOTE | 2020-07-14 07:37 | NUR ---
RECEIVED REPORT FROM WEBBING SEAMER POUND NET RN. PATIENT ASLEEP IN BED. HOB ELEVATED. NO S/S OF PAIN, NO SOB, RESPIRATION ARE EVEN AND UNLABORED. ON 4L O2 VIA NC. IV SITE LFA 22G INFUSING D5 NS @ 75ML/HR. SKIN INTACT. SAFETY MEASURES IN PLACE. ISO PRECAUTION OBSERVED. CALL LIGHT WITHIN REACH. WILL CONTINUE TO MONITOR.
[2020-07-14 07:40] LABS: CREATININE 4.8 mg/dL (0.6-1.3); UREA NITROGEN, BLOOD 115 mg/dL (7-18)
[2020-07-14 08:00] VITALS: BP 176/73
[2020-07-14] MEDS: SEVELAMER CARBONATE 800 MG TAB PO SCH ×3 (08:00→16:54)
--- NOTE | 2020-07-14 09:00 | NUR ---
DUE MORNING MEDS GIVEN. TOLERATED PO MEDS WELL
[2020-07-14] MEDS: carvediloL 6.25 MG TAB PO SCH ×2 (09:06→21:35)
[2020-07-14] MEDS: OXYBUTYNIN 5 MG TAB PO SCH ×2 (09:06→21:35)
[2020-07-14] MEDS: DULoxetine 30 MG CAPDR PO SCH (09:06)
[2020-07-14] MEDS: MORPHINE TAB ER 15 MG TABER PO SCH (09:07)
[2020-07-14] MEDS: SODIUM BICARBONATE 650 MG TAB PO SCH ×2 (09:07→21:35)
[2020-07-14] MEDS: ZINC SULF 220 MG CAP PO SCH (09:07)
[2020-07-14] MEDS: ASCORBIC ACID 500 MG TAB PO SCH (09:07)
[2020-07-14] MEDS: SENNA 8.6 MG TAB PO SCH (09:07)
[2020-07-14 12:00] VITALS: BP 134/70
--- NOTE | 2020-07-14 12:30 | NUR ---
WITH C/O LOWER BACK PAIN 02/06. NORCO GIVEN ORDERED
--- NOTE | 2020-07-14 13:49 | NUR ---
PT AWAKE IN BED. NO C/O PAIN, NO SOB, NO APPARENT DISTRESS
[2020-07-14 16:00] VITALS: BP 112/87
--- NOTE | 2020-07-14 16:30 | NUR ---
PT IN BED, NO S/S OF DISTRESS, NO C/O PAIN O2SAT 91% ON 4L O2. NO C/O DIFFICULTY BREATHING
--- NOTE | 2020-07-14 18:22 | NUR ---
PT AWAKE IN BED WATCHING TV, NO S/S OF DISTRESS, NO C/O PAIN. NO C/O SOB. VSS
[2020-07-14] MEDS: DEXT 5% /NACL 0.9% 1,000 ML IV SCH (18:46)
--- NOTE | 2020-07-14 19:05 | NUR ---
RECEIVED REPORT FROM DAY SHIFT NURSE. PT IN BED WITH HOB ELEVATED, AWAKE, AAOX3. PATIENT ON 4L O2 VIA NC. RESPIRATIONS EVEN AND UNLABORED. O2 SAT 94%. PT NOT IN DISTRESS AT THIS TIME. ABDOMEN IS SOFT. PT WITH CHOLECYSTOSTOMY TUBE IN PLACE, DRAINING WELL TO BROWN LIQUID. PT ALSO WITH SUPRAPUBIC CATH IN PLACE, DRAINING CLEAR YELLOW URINE. SKIN IS WARM AND DRY, NO EDEMA NOTED. PT ON TELE MONITORING. PT DENIES ANY PAIN OR DISCOMFORT AT THIS TIME. NO REQUESTS MADE. SAFETY MEASURES IN PLACE, CALL LIGHT WITHIN REACH. WILL CONTINUE TO MONITOR Addendum: 07/14/20 at 2159 by Alan Austin RN PT WITH BLE EDEMA
[2020-07-14 20:00] VITALS: BP 120/108
--- NOTE | 2020-07-14 21:35 | NUR ---
VS STABLE. SCHEDULED MEDS GIVEN. PT DENIES ANY PAIN OR DISCOMFORT AT THIS TIME. PT NOT IN DISTRESS. O2 IN PLACE. O2 SAT 92%. NO REQUESTS MADE. SAFETY MEASURES IN PLACE, CALL LIGHT WITHIN REACH, WILL CONTINUE TO MONITOR.
--- NOTE | 2020-07-14 22:11 | NUR ---
ROUNDS MADE. PT IN BED WITH HOB ELEVATED, WATCHING TV. O2 IN PLACE. O2 SAT 92%. PT NOT IN DISTRESS. NO REQUESTS MADE. PT KEPT COMFORTABLE. SAFETY MEASURES IN PLACE. WILL CONTINUE TO MONITOR.
[2020-07-15] VITALS: BP 152/69
[2020-07-15] MEDS: HYDROcodone/APAP 7.5/325 MG 1 TAB PO PRN (00:23)
--- NOTE | 2020-07-15 00:23 | NUR ---
VS STABLE. O2 IN PLACE. O2 SAT 93%. PT COMPLAINING OF BACK PAIN 02/06. PRN PAIN MEDICATION GIVEN ORDERED. WILL CONTINUE TO MONITOR.
--- NOTE | 2020-07-15 02:04 | NUR ---
ROUNDS MADE. PT ASLEEP. O2 IN PLACE. PT NOT IN DISTRESS. O2 SAT 93%. PT KEPT COMFORTABLE. SAFETY MEASURES IN PLACE. CALL LIGHT WITHIN REACH. WILL CONTINUE TO MONITOR.
[2020-07-15] MEDS: ALPRAZolam 0.5 MG TAB PO PRN (03:48)
--- NOTE | 2020-07-15 03:48 | NUR ---
PT ANXIOUS. PRN XANAX GIVEN ORDERED. VS STABLE. O2 IN PLACE. O2 SAT 95%. PT KEPT COMFORTABLE. SAFETY MEASURES IN PLACE. WILL CONTINUE TO MONITOR.
[2020-07-15 04:00] VITALS: BP 121/61
[2020-07-15] MEDS ORDERED: LEVOFLOXACIN 500 MG/D5W PREMIX 100 ML IV SCH (05:00)
[2020-07-15 07:14] LABS: BASOPHILS % (AUTO) 0.2 % (0.0-2.0); HEMATOCRIT 22.9 % (36-52); HEMOGLOBIN 7.5 g/dL (12.0-18.0); LYMPHOCYTES # (AUTO) 0.3 K/uL (2.0-11.5); LYMPHOCYTES % (AUTO) 2.1 % (20.5-51.1); MEAN CORPUSCULAR HEMOGLOBIN 31 pg (27-31); MEAN CORPUSCULAR HGB CONC 33 g/dL (33-37); MEAN CORPUSCULAR VOLUME 93.7 fL (80-94); MONOCYTES # (AUTO) 0.6 K/uL (0.8-1.0); NEUTROPHILS # (AUTO) 11.7 K/uL (1.8-7.7); NEUTROPHILS % (AUTO) 92.7 % (42.2-75.2); PLATELET COUNT (AUTO) 214 K/uL (140-450); RED BLOOD CELL COUNT(AUTO) 2.44 MIL/uL (4.20-6.10); WHITE BLOOD COUNT (AUTO) 12.6 K/uL (4.8-10.8)
[2020-07-15 07:18] LABS: ANION GAP 19.8 (8-16); CARBON DIOXIDE 18.3 mmol/L (21-32); CHLORIDE 101 mmol/L (98-107); GLUCOSE 108 mg/dL (74-106); POTASSIUM 5.1 mmol/L (3.5-5.1); SODIUM SERUM 134 mmol/L (136-145)
--- NOTE | 2020-07-15 07:18 | NUR ---
ENDORSED TO DAY SHIFT NURSE FOR CONTINUITY OF CARE.
--- NOTE | 2020-07-15 07:19 | NUR ---
RECEIVED REPORT FROM SENIOR QUALITY [employer] SPECIALIST NURSE SHANA FOR CONTINUITY OF CARE. PATIENT IN STABLE CONDITION. RESPIRATIONS EVEN AND UNLABORED. IV INTACT AND PATENT. BED IN LOW POSITION. BED ALARM ON. CALL LIGHT WITHIN REACH. WILL CONTINUE TO MONITOR.
[2020-07-15 07:22] LABS: CREATININE 4.3 mg/dL (0.6-1.3); UREA NITROGEN, BLOOD 114 mg/dL (7-18)
[2020-07-15] MEDS ORDERED: ALPRAZolam 0.5 MG TAB PO PRN (07:48)
[2020-07-15] MEDS: SEVELAMER CARBONATE 800 MG TAB PO SCH ×2 (07:52→13:06)
[2020-07-15] MEDS: MORPHINE SULFATE 2 MG/ML SYR IVP PRN (07:52)
[2020-07-15 08:00] VITALS: BP 137/64
--- NOTE | 2020-07-15 09:30 | NUR ---
ASSISTED WITH CLEANING AND CHANGING LINEN AT THIS TIME. PATIENT TOLERATED WELL. BED IN LOW POSITION. CALL LIGHT WITHIN REACH. BED ALARM ON. WILL CONTINUE TO MONITOR.
[2020-07-15] MEDS: ASCORBIC ACID 500 MG TAB PO SCH (09:54)
[2020-07-15] MEDS: ZINC SULF 220 MG CAP PO SCH (09:55)
[2020-07-15] MEDS: DULoxetine 30 MG CAPDR PO SCH (09:55)
[2020-07-15] MEDS: OXYBUTYNIN 5 MG TAB PO SCH (09:55)
[2020-07-15] MEDS: SENNA 8.6 MG TAB PO SCH (09:55)
[2020-07-15] MEDS: MORPHINE TAB ER 15 MG TABER PO SCH (09:55)
[2020-07-15] MEDS: carvediloL 6.25 MG TAB PO SCH (09:55)
[2020-07-15] MEDS: SODIUM BICARBONATE 650 MG TAB PO SCH (09:55)
[2020-07-15] MEDS: DEXT 5% /NACL 0.9% 1,000 ML IV SCH (10:06)
[2020-07-15] MEDS ORDERED: CRUSHER, PILL MC ONE (10:08)
[2020-07-15] MEDS ORDERED: CARV6.25 PO (11:00)
[2020-07-15] MEDS ORDERED: ALPR0.5T2 PO (11:00)
[2020-07-15] MEDS ORDERED: LEVO750T51 PO (11:00)
[2020-07-15] MEDS ORDERED: ASPI-1205 PO (11:00)
[2020-07-15] MEDS ORDERED: DEC1 PO (11:00)
--- NOTE | 2020-07-15 11:04 | NUR ---
CRUSH MEDICATIONS AT THIS TIME FOR PATIENT.
[2020-07-15 12:00] VITALS: BP 126/62
--- NOTE | 2020-07-15 12:21 | NUR ---
RETURNING PHONE CALL FROM [facility] PATIENT SON NO ANSWER LEFT A MESSAGE.
--- NOTE | 2020-07-15 14:00 | NUR ---
GAVE REPORT [facility]. ALL QUESTIONS ANSWERED AT THIS TIME.
--- NOTE | 2020-07-15 14:22 | NUR ---
PATIENT WATCHING TV IN STABLE CONDITION. PATIENT IN STABLE CONDITION. BED IN LOW POSITION. CALL LIGHT WITHIN REACH. BED ALARM ON. WILL CONTINUE TO MONITOR.
--- NOTE | 2020-07-15 16:00 | NUR ---
DISCHARGE INSTRUCTIONS GIVEN AT THIS TIME. VERBALIZED UNDERSTANDING OF INSTRUCTIONS. IV REMOVED, LUMEN INTACT. ID BAND REMOVED. PATIENT LOADED ON [employer] IN STABLE CONDITION.
== END 2020-07-15 16:00 | DRG 177 ==
LOC: MED 03:20 → MTU 06:30
PROVIDERS: ADMIT Emergency Medicine; ATTEND Emergency Medicine
PROC: 0F9430Z Drainage of Gallbladder with Drainage Device, Percutaneous Approach (ICD-10-PCS; principal; 2020-07-13)
PROC: XW13325 Transfusion of Convalescent Plasma (Nonautologous) into Peripheral Vein, Percutaneous Approach, New Technology Group 5 (ICD-10-PCS; 2020-07-13)
DX: U07.1 COVID-19 (principal); N17.0 Acute kidney failure with tubular necrosis; J12.89 Other viral pneumonia; J96.01 Acute respiratory failure with hypoxia; E87.1 Hypo-osmolality and hyponatremia; E87.2 Acidosis; G82.20 Paraplegia, unspecified; N39.0 Urinary tract infection, site not specified; N18.4 Chronic kidney disease, stage 4 (severe); K80.00 Calculus of gallbladder with acute cholecystitis without obstruction; E87.5 Hyperkalemia; B96.5 Pseudomonas (aeruginosa) (mallei) (pseudomallei) as the cause of diseases classified elsewhere; D63.8 Anemia in other chronic diseases classified elsewhere; E78.5 Hyperlipidemia, unspecified; E87.8 Other disorders of electrolyte and fluid balance, not elsewhere classified; F32.9 Major depressive disorder, single episode, unspecified; K21.9 Gastro-esophageal reflux disease without esophagitis; N40.0 Benign prostatic hyperplasia without lower urinary tract symptoms; G89.29 Other chronic pain; M54.9 Dorsalgia, unspecified; I12.9 Hypertensive chronic kidney disease with stage 1 through stage 4 chronic kidney disease, or unspecified chronic kidney disease; E83.39 Other disorders of phosphorus metabolism; Z85.46 Personal history of malignant neoplasm of prostate; Z92.3 Personal history of irradiation
CPT/HCPCS: 36415; 36600; 71045; 74018; 74150; 75989; 76705; 76770; 78445; 80048; 80053; 81001; 82436; 82550; 82570; 82728; 82803; 83036; 83605; 83615; 83735; 83880; 84100; 84300; 84436; 84439; 84443; 84479; 84484; 85025; 85379; 85384; 85610; 85651; 85730; 86140; 86886; 86900; 86901; 87040; 87081; 87086; 87420; 87804; 93005; 96365; 96367; 96375; 99291; J0456; J0610; J0696; J1100; J1644; J1885; J1956; J2001; J2270; J7030; J7042; J7060; P9017; U0003